=== PATIENT | female | born 1960 | race Caucasian/White ===

== ENCOUNTER 2016-03-28 16:00 | Emergency (ER) | payer OTHER ==
[~2016-03-28] VITALS: Ht 172.7 cm; Wt 90.3 kg
--- NOTE | ~2016-03-28 | EKG ---
[address] [address] ELECTROCARDIOGRAM REPORT Name: SALLY CARRION Room #: [facility]#: [id number] Admission: 03/28/16 Attend Phys: Discharge: 03/28/16 Date of : 62 Report #: [id number] THIS REPORT FOR: //name// [facility] ED Test Date: 2016-03-28 Test Time: 16:36:47 Pat Name: SALLY CARRION Department: Room: Gender: F Drill Instructor: Juan Jose MEEHAN : 1960 Requested By: Mariluz South Order Number: [id number] MD: Jorge Mckeon Measurements Intervals [place] Rate: 62 P: 32 KS: 177 QRS: 52 QRSD: 106 T: 25 QT: 419 QTc: 426 Interpretive Statements Sinus rhythm Low voltage, extremity and precordial leads Compared to ECG 01/15/2016 10:59:14 Low QRS voltage now present Intraventricular conduction delay no longer present Electronically Signed On 03-29-2016 8:03:52 [employer] by Jorge Mckeon [email or web address] <ELECTRONICALLY SIGNED> By: [place] [id number] Jorge Mckeon MD /ANGIE
[~2016-03-28 16:00] MED LIST: ACETAMINOPHEN325 M1 PO; ALBUTEROL2.5 MG/31 INH; AMARYL4 MG PO; AMBIEN 10 MG TA10 MG PO; APIDRA100 U/ML; ASPIRIN EC325 M1 PO; ASPIRIN325 PO; ATIVAN1 MG PO; AVELOX 400 MG400 M1 PO; AZITHROMYCIN 2250 MG PO; B-121000 MC2 PO; B-121000 MCG PO; BROVANA15 MCG/2 M INH; CELEXA40 MG PO; CLONAZEPAM 1 MG1 M1 PO; COLACE 100 MG100 MG; COLACE 100 MG100 MG PO; COLACE100 MG PO; CYMBALTA60 MG PO; DALIRESP500 MCG PO; DOXYCYCLINE 10100 M2 PO; DOXYCYCLINE 10100 MG PO; FLEXERIL PO; GLUCOPHAGE1000 MG PO; GLUCOPHAGE500 MG PO; GUAIFENESIN600 MG PO; HYDROCODONE-AP1 EACH PO; LANTUS SUBQ; LATUDA20 MG PO; LEVAQUIN 500 M500 M4 PO; LEXAPRO 10 MG T10 M1 PO; LIDODERM 5%1 PATC1 TRANSDERM; LISINOPRIL10 MG PO; LISINOPRIL20 MG PO; LOFIBRA160 MG PO; MILK OF MA2400 MG/10 PO; MIRALAX17 GM PO; MUCINEX TA600 MG/TA2 PO; MUCINEX600 MG PO; NEURONTIN 300300 M1 PO; NOVOLOG FL100 UNIT/M SC; ONDANSETRON HCL4 M2 PO; PERCOCET 10-321 EAC1 PO; PERCOCET 10-321 EACH PO; PHENERGAN 25 MG25 M1 PO; PREDNISONE 10 M10 MG; PREDNISONE 10 M10 MG PO; PREDNISONE 20 M20 M1 PO; PREDNISONE 20 M20 MG PO; PREDNISONE 5 MG5 M1; PREDNISONE10 MG; PREDNISONE50 MG PO; PRINIVIL20 MG PO; PROAIR HFA8.5 GM INH; PULMICORT FLE180 MCG INH; PULMICORT0.5 MG/2 M INH; REMERON30 MG PO; RISPERDAL 3 MG T3 M1 PO; SINGULAIR 10 MG10 MG PO; SINGULAIR 5 MG C5 M1 PO; SPIRIVA INH; TESSALON PERLE100 MG PO; TRAZODONE HCL100 MG PO; TYLENOL325 MG PO; UNICOMPLEX M TA1 TA1 PO; VALIUM10 MG PO; VENTOLIN HFA 1818 GM PO; ZESTORETIC 20-1 EAC3 PO; ZOCOR20 MG PO
[2016-03-28 17:14] LABS: ABSOLUTE NEUTROPHILS 5.1 thou/uL (1.4-8.2); BASOPHILS 1.4 % (0.0-2.0); EOSINOPHILS 3.3 % (0.0-3.0); HEMATOCRIT 39.6 % (37.0-47.0); HEMOGLOBIN 13.4 gm/dL (12.0-15.0); LYMPHOCYTES 28.4 % (24.0-44.0); MCHC 33.9 % (28.0-37.0); MCV 88.4 fL (80.0-100.0); MONOCYTES 6.2 % (1.0-8.0); PLATELET COUNT 200 thou/uL (150-400); POLYS 60.7 % (36.0-66.0); RBC 4.48 mil/uL (4.20-5.00); RDW 12.8 % (10.5-14.5); WBC 8.4 thou/uL (4.0-11.0)
[2016-03-28 17:16] LABS: MANUAL DIFF NO
[2016-03-28 17:26] LABS: ANION GAP 5 mmol/L (7-16); BUN 11 mg/dL (7-18); CALCIUM 10.1 mg/dL (8.5-10.1); CHLORIDE 103 mmol/L (98-107); CO2 32 mmol/L (21-32); CREATININE 0.6 mg/dL (0.6-1.3); GLUCOSE 52 mg/dL (70-99); POTASSIUM 3.9 mmol/L (3.5-5.1); SODIUM 140 mmol/L (136-145)
[2016-03-28 17:40] LABS: ALBUMIN 3.7 g/dL (3.4-5.0); ALKALINE PHOSPHATASE 88 U/L (46-116); NT-PRO BRAIN NAT PEPTIDE 19 pg/mL (<300); SGOT 25 U/L (15-37); SGPT 21 U/L (30-65); TOTAL BILIRUBIN 0.4 mg/dL (<0.1-1.0); TOTAL PROTEIN 6.8 g/dL (6.4-8.2); TROPONIN-I < 0.04 ng/mL (<0.04-0.07)
[2016-03-28] MEDS ORDERED: PREDNISONE 20 M20 MG PO (18:25)
[2016-03-28 18:39] VITALS: BP 143/88
== END 2016-03-28 18:39 | disposition home or self-care (01) ==
LOC: ER 16:00
PROVIDERS: Physician Assistant
DX: J44.1 Chronic obstructive pulmonary disease with (acute) exacerbation (principal); E11.9 Type 2 diabetes mellitus without complications; Z79.4 Long term (current) use of insulin; I10 Essential (primary) hypertension; F41.8 Other specified anxiety disorders; Z90.710 Acquired absence of both cervix and uterus; Z88.8 Allergy status to other drugs, medicaments and biological substances; Z88.1 Allergy status to other antibiotic agents; Z91.040 Latex allergy status; Z91.013 Allergy to seafood

== ENCOUNTER → 2016-06-06 | Outpatient (CLI) | payer OTHER | LOC: RAD 11:50 | DX: J18.9 Pneumonia, unspecified organism (principal); R05 Cough; J98.11 Atelectasis; J98.4 Other disorders of lung ==

== ENCOUNTER 2017-06-18 13:15 | Emergency (ER) | payer OTHER ==
[~2017-06-18] VITALS: Ht 172.7 cm; Wt 85.7 kg
[2017-06-18 15:58] LABS: ABSOLUTE NEUTROPHILS 3.8 thou/uL (1.4-8.2); BASOPHILS 0.2 % (0.0-2.0); EOSINOPHILS 7.7 % (0.0-3.0); HEMATOCRIT 37.3 % (37.0-47.0); HEMOGLOBIN 12.3 gm/dL (12.0-15.0); LYMPHOCYTES 31.3 % (24.0-44.0); MCH 28.3 pg (26.0-34.0); MCHC 32.9 g/dL (28.0-37.0); MCV 86.1 fL (80.0-100.0); MONOCYTES 7.5 % (1.0-8.0); PLATELET COUNT 221 thou/uL (150-400); POLYS 53.3 % (36.0-66.0); RBC 4.33 mil/uL (4.20-5.00); RDW 14.1 % (10.5-14.5); WBC 7.2 thou/uL (4.0-11.0)
[2017-06-18 16:07] LABS: CALCIUM 9.6 mg/dL (8.5-10.1); CREATININE 0.6 mg/dL (0.6-1.0); POTASSIUM 3.7 mmol/L (3.5-5.1)
[2017-06-18 16:13] LABS: ALBUMIN 2.9 g/dL (3.4-5.0); TOTAL BILIRUBIN 0.3 mg/dL (<0.1-1.0); TOTAL PROTEIN 6.2 g/dL (6.4-8.2)
[2017-06-18 16:16] LABS: APTT 27.5 Seconds (24.5-32.8); D-DIMER 2.01 ug/mLFEU (0.19-0.50); PROTIME 10.7 Seconds (9.3-11.4)
[2017-06-18] MEDS ORDERED: CLEOCIN HCL300 MG PO (17:17)
[2017-06-18 17:40] VITALS: BP 116/67
== END 2017-06-18 17:41 | disposition home or self-care (01) ==
LOC: ER 13:15
PROVIDERS: Emergency Medicine
DX: L03.116 Cellulitis of left lower limb (principal); J44.9 Chronic obstructive pulmonary disease, unspecified; I10 Essential (primary) hypertension; E11.9 Type 2 diabetes mellitus without complications; G43.909 Migraine, unspecified, not intractable, without status migrainosus; Z87.891 Personal history of nicotine dependence; Z88.1 Allergy status to other antibiotic agents; Z91.040 Latex allergy status

== ENCOUNTER 2017-09-24 14:28 | Emergency (ER) | payer OTHER ==
[~2017-09-24] VITALS: Ht 172.7 cm; Wt 92.1 kg
[~2017-09-24 14:28] MED LIST changes: +CLEOCIN HCL300 MG PO
[2017-09-24] MEDS ORDERED: SUBOXONE 8 MG-1 EAC3 PO (14:39)
[2017-09-24] MEDS ORDERED: MOBIC15 MG PO (16:57)
[2017-09-24 16:58] VITALS: BP 103/69
== END 2017-09-24 17:18 | disposition home or self-care (01) ==
LOC: ER 14:28
DX: S09.90XA Unspecified injury of head, initial encounter (principal); J44.9 Chronic obstructive pulmonary disease, unspecified; E11.9 Type 2 diabetes mellitus without complications; I10 Essential (primary) hypertension; F31.9 Bipolar disorder, unspecified; F41.9 Anxiety disorder, unspecified; G43.909 Migraine, unspecified, not intractable, without status migrainosus; E66.01 Morbid (severe) obesity due to excess calories; Z68.30 Body mass index [BMI] 30.0-30.9, adult; Z88.1 Allergy status to other antibiotic agents; Z91.040 Latex allergy status; Z91.013 Allergy to seafood; V49.49XA Driver injured in collision with other motor vehicles in traffic accident, initial encounter; Y93.89 Activity, other specified; Y92.89 Other specified places as the place of occurrence of the external cause; Y99.8 Other external cause status

== ENCOUNTER → 2018-10-20 | Outpatient (CLI) | payer OTHER ==
[~2018-10-20] MED LIST changes: +MOBIC15 MG PO; +SUBOXONE 8 MG-1 EAC3 PO
== END ==
LOC: RAD 14:46
DX: J44.9 Chronic obstructive pulmonary disease, unspecified (principal)